=== PATIENT | male | born 1980 | race Hispanic/Latino ===

== ENCOUNTER 2023-01-14 20:53 | Emergency (ER) | payer BC ==
[~2023-01-14] VITALS: Ht 180.3 cm; Wt 120.7 kg
[2023-01-14 23:01] VITALS: BP 112/65
== END 2023-01-14 23:02 | disposition home or self-care (01) ==
LOC: ED 20:53
DX: K62.5 Hemorrhage of anus and rectum (principal)
CPT/HCPCS: 36415; 80053; 81003; 85025; 85610; 85730; 86850; 86900; 86901; C9113; J2405; J7121